=== PATIENT | female | born 1955 | race Caucasian/White ===

== ENCOUNTER 2021-03-09 12:01 | Emergency (ER) | payer OTHER ==
[2021-03-09 12:05] VITALS: BP 143/81; PULSE 71; RESP 18; TEMP 98.2
[2021-03-09] MEDS ORDERED: IBUPROFEN 800 MG TAB PO STA (12:25)
[2021-03-09] MEDS ORDERED: AMOXIC-POT CLAV 875-125MG 1 EACH TAB PO STA (12:25)
[2021-03-09] MEDS ORDERED: HYDROcodone/APAP 5-325MG 1 EACH TAB PO STA (12:25)
--- NOTE | 2021-03-09 12:33 | ED ---
ENT HPI - General Chief complaint: Dental/Oral Stated complaint: mouth pain Time Seen by Provider: 03/09/21 12:12 Source: patient Mode of arrival: ambulatory Limitations: no limitations - History of Present Illness Initial comments: Patient states that she has an abscessed tooth. She has no trouble opening her mouth. She has no trouble swallowing. She has no elevation of the tongue. She has no trouble swallowing. She has no neck pain or stiffness. She has no ear pain. The pain is localized. It doesn't radiate anywhere. Nothing makes it better or worse. She has taken no medicine for her pain. - Related Data Previous Rx's Medication Instructions Recorded Amoxic-Pot Clav 875-125Mg 1 each PO Q12HR #20 tablet 03/09/21 [Augmentin Xr 875-125] Allergies Allergy/AdvReac Type Severity Reaction Status Date / Time codeine Allergy Nausea & Verified 03/09/21 12:05 Vomiting Review of Systems ROS Statement: Those systems with pertinent positive or pertinent negative responses have been documented in the HPI. ROS Other: All systems not noted in ROS Statement are negative. Past Medical History Past Medical History: Diabetes Mellitus History of Any Multi-Drug Resistant Organisms: None Reported Past Surgical History: Section, Cholecystectomy Additional Past Surgical History / Comment(s): Nasal cyst Past Psychological History: No Psychological Hx Reported Smoking Status: Current every day smoker Past Alcohol Use History: None Reported General Exam Limitations: no limitations General appearance: alert Head exam: Present: atraumatic Eye exam: Present: normal appearance ENT exam: Present: mucous membranes moist, other (Poor dentition, evidence of dental infection) Neck exam: Present: normal inspection, full ROM. Absent: meningismus Respiratory exam: Absent: respiratory distress Neurological exam: Present: alert, oriented X3 Psychiatric exam: Present: normal affect Skin exam: Absent: rash Course Vital Signs 03/09/21 12:02 Temperature 98.2 F Pulse Rate 71 Respiratory 18 Rate Blood Pressure 143/81 O2 Sat by Pulse 96 Oximetry Medical Decision Making - Medical Decision Making Patient has a dental infection. There is no indication for imaging at this time. It is very localized. There is no evidence of intraoral abscesses that can be drained. There is no evidence of Andrei angina or any other acute emergency condition. She is stable for discharge. I instructed her to follow- up with dental as soon as possible and to return to the emergency department if her symptoms worsen at all. Disposition Clinical Impression: Dental caries Disposition: HOME SELF-CARE Condition: Good Instructions (If sedation given, give patient instructions): Toothache (ED), Dental Abscess (ED) Prescriptions: Amoxic-Pot Clav 875-125Mg [Augmentin Xr 875-125] 1 each PO Q12HR #20 tablet Is patient prescribed a controlled substance at d/c from ED?: No Referrals: Conrado Banks MD [Primary Care Provider] - 1-2 days
== END 2021-03-09 12:51 | disposition home or self-care (01) ==
LOC: EC 12:01
DX: K02.9 Dental caries, unspecified (principal); E11.9 Type 2 diabetes mellitus without complications; F17.200 Nicotine dependence, unspecified, uncomplicated; Z88.5 Allergy status to narcotic agent
CPT/HCPCS: 99282

== ENCOUNTER 2021-04-13 05:35 | Emergency (ER) | payer OTHER ==
[2021-04-13 05:40] VITALS: BP 132/86; PULSE 84; RESP 18; TEMP 97.6
[2021-04-13] MEDS ORDERED: PENICILLIN VK 500MG STARTER 4 TAB BTL PO STA (05:48)
[2021-04-13] MEDS ORDERED: IBUPROFEN 600 MG STARTER PACK 4 TAB BTL PO STA (05:48)
[2021-04-13] MEDS ORDERED: IBUPROFEN 800 MG TAB PO STA (05:48)
[2021-04-13] MEDS ORDERED: traMADol 50 MG STARTER PACK 3 TAB BTL PO STA (05:48)
[2021-04-13] MEDS ORDERED: DEXAMETHASONE SOD PHOSPHATE 10 MG/ML 1 ML VIAL IM STA (05:48)
[2021-04-13] MEDS ORDERED: HYDROcodone/APAP 5-325MG 1 EACH TAB PO STA (05:48)
[2021-04-13] MEDS ORDERED: PENICILLIN V POTASSIUM 250 MG TAB PO STA (05:49)
--- NOTE | 2021-04-13 05:52 | ED ---
ENT HPI - General Chief complaint: Dental/Oral Stated complaint: Dental abscess Time Seen by Provider: 04/13/21 05:48 Source: patient, family, RN notes reviewed, old records reviewed Mode of arrival: ambulatory Limitations: no limitations - History of Present Illness Initial comments: This is a 65-year-old female presented today for evaluation of severe tooth pain with facial swelling. Symptoms started yesterday progressively worsened today. Patient did make appointment with dentist. Patient dental infection last month of the same tooth pain is pretty significant. She is afebrile no nausea vomiting diarrhea, no shortness of breath or chest pain. No other complaints MD complaint: tooth pain -: days(s) (2) Severity: severe Severity scale (1-10): 8 Quality: aching Consistency: constant Improves with: none Worsens with: none Context- Dental: poor dental care Associated Symptoms: toothache, other (Patient had similar infection 1 month ago) - Related Data Home Medications Medication Instructions Recorded Confirmed Atorvastatin [Lipitor] 20 mg PO DAILY 03/09/21 03/09/21 Citalopram Hydrobromide [CeleXA] 20 mg PO DAILY 03/09/21 03/09/21 Losartan Potassium 50 mg PO DAILY 03/09/21 03/09/21 Metoprolol Succinate [Toprol XL] 25 mg PO DAILY 03/09/21 03/09/21 glipiZIDE [Glucotrol] 10 mg PO AC-BID 03/09/21 03/09/21 metFORMIN HCL [Glucophage] 1,000 mg PO BID 03/09/21 03/09/21 Previous Rx's Medication Instructions Recorded Amoxic-Pot Clav 875-125Mg 1 each PO Q12HR #20 tablet 03/09/21 [Augmentin Xr 875-125] Allergies Allergy/AdvReac Type Severity Reaction Status Date / Time codeine Allergy Nausea & Verified 04/13/21 05:40 Vomiting Review of Systems ROS Statement: Those systems with pertinent positive or pertinent negative responses have been documented in the HPI. ROS Other: All systems not noted in ROS Statement are negative. Past Medical History Past Medical History: Diabetes Mellitus History of Any Multi-Drug Resistant Organisms: None Reported Past Surgical History: Section, Cholecystectomy Additional Past Surgical History / Comment(s): Nasal cyst Past Psychological History: No Psychological Hx Reported Smoking Status: Current every day smoker Past Alcohol Use History: None Reported General Exam Limitations: no limitations General appearance: alert, in no apparent distress Head exam: Present: atraumatic, normocephalic, normal inspection Eye exam: Present: normal appearance, PERRL, EOMI. Absent: scleral icterus, conjunctival injection, periorbital swelling ENT exam: Present: normal exam, mucous membranes moist, other (Patient does have significant dental caries with fractured tooth lower rear, does have some swelling in her cheek area as well) Neck exam: Present: normal inspection. Absent: tenderness, meningismus, lymphadenopathy Respiratory exam: Present: normal lung sounds bilaterally. Absent: respiratory distress, wheezes, rales, rhonchi, stridor Cardiovascular Exam: Present: regular rate, normal rhythm, normal heart sounds. Absent: systolic murmur, diastolic murmur, rubs, gallop, clicks GI/Abdominal exam: Present: soft, normal bowel sounds. Absent: distended, tenderness, guarding, rebound, rigid Extremities exam: Present: normal inspection, full ROM, normal capillary refill. Absent: tenderness, pedal edema, joint swelling, calf tenderness Back exam: Present: normal inspection Neurological exam: Present: alert, oriented X3, CN II-XII intact Psychiatric exam: Present: normal affect, normal mood Skin exam: Present: warm, dry, intact, normal color. Absent: rash Course Vital Signs 04/13/21 05:36 Temperature 97.6 F Pulse Rate 84 Respiratory 18 Rate Blood Pressure 132/86 O2 Sat by Pulse 96 Oximetry - Reevaluation(s) Reevaluation #1: 04/13/21 05:51 Medical record is reviewed Reevaluation #2: 04/13/21 05:51 Patient is currently adequate pain control Reevaluation #3: 04/13/21 05:51 Spoke with patient regarding findings and questions have been answered Medical Decision Making - Medical Decision Making 65 female who does present today for evaluation of dental pain with right lower mandibular swelling. Patient does have significant dental fracture with dental caries and dental infection with abscess. Patient placed on antibiotics and pain control does have follow-up dentist appointment this morning at 9 AM Disposition Clinical Impression: Dental abscess, Dental caries Disposition: HOME SELF-CARE Condition: Good Instructions (If sedation given, give patient instructions): Dental Abscess (ED), Toothache (ED) Is patient prescribed a controlled substance at d/c from ED?: No Referrals: Robert Hickman DDS [STAFF PHYSICIAN] - 1-2 days
== END 2021-04-13 06:15 | disposition home or self-care (01) ==
LOC: EC 05:35
DX: K04.7 Periapical abscess without sinus (principal); K02.9 Dental caries, unspecified; E11.9 Type 2 diabetes mellitus without complications; F17.200 Nicotine dependence, unspecified, uncomplicated; Z88.5 Allergy status to narcotic agent
CPT/HCPCS: 96372; 99283; J1100

== ENCOUNTER → 2021-06-05 | Outpatient (CLI) | payer OTHER ==
[2021-06-05 22:59] LABS: Basophils # (A) 0.04 X 10*3/uL (0.00-0.10); Basophils % (A) 0.4 %; Eosinophils # (A) 0.17 X 10*3/uL (0.04-0.35); Eosinophils % (A) 1.9 %; HCT 43.3 % (37.2-46.3); HGB 13.9 g/dL (12.0-15.0); Immature Grans, Automated 0.3 %; Lymphocytes # (A) 2.87 X 10*3/uL (0.90-5.00); Lymphocytes % (A) 31.4 %; MCH 29.8 pg (27.0-32.0); MCHC 32.1 g/dL (32.0-37.0); MCV 92.7 fL (80.0-97.0); Mean Platelet Volume 10.5 fL (9.5-12.2); Monocytes # (A) 0.46 X 10*3/uL (0.20-1.00); NRBC Per 100 WBC 0 /100 WBCS (0.0-0.0); Neutrophils # (A) 5.57 X 10*3/uL (1.80-7.70); Platelet Count 248 X 10*3/uL (140-440); RBC 4.67 X 10*6/uL (4.10-5.20); RDW 12.6 % (11.5-14.5); WBC 9.14 X 10*3/uL (4.50-10.00)
[2021-06-05 23:54] LABS: African American GFR (CKD) 111.2 (60.0-200.0); Albumin 4.5 g/dL (3.8-4.9); Albumin/Globulin Ratio 1.89 (1.60-3.17); Anion Gap 11.7 mmol/L (10.00-18.00); BUN/Creat Ratio 16.06 Ratio (12.00-20.00); Blood Urea Nitrogen 9.8 mg/dL (9.0-27.0); Calcium 10.6 mg/dL (8.7-10.3); Carbon Dioxide 23.1 mmol/L (20.0-27.5); Globulin 2.4 g/dL (1.6-3.3); Potassium 4.4 mmol/L (3.5-5.5); T4, Free (Free Thyroxine) 1.58 ng/dL (0.800-1.800); Total Bilirubin 0.3 mg/dL (0.30-1.20); Total Protein 6.8 g/dL (6.2-8.2)
== END | disposition home or self-care (01) ==
LOC: LABWHC1 15:06
PROVIDERS: ATTEND Family Medicine
DX: I10 Essential (primary) hypertension (principal); E83.52 Hypercalcemia; R53.83 Other fatigue
CPT/HCPCS: 36415; 80053; 82306; 82607; 82728; 82746; 83970; 84439; 84443; 84481; 85025

== ENCOUNTER → 2021-08-06 | Outpatient (CLI) | payer OTHER ==
--- NOTE | 2021-08-06 16:19 | NM ---
EXAMINATION TYPE: NM parathyroid w/spect DATE OF EXAM: 08/06/2021 COMPARISON: NONE HISTORY: E 21.0 TECHNIQUE: Following administration of 25.7 mCi Tc99m Sestamibi. Anterior projection images of the neck and ches t were obtained 10 minutes and 3 hours post injection. SPECT images of the neck and chest were obtai doug and reconstructed in three axes. FINDINGS: Thyroid tracer washout: Delayed images demonstrate near-complete tracer washout from the thyroid. Parathyroid uptake: None. The two-hour delayed images do not demonstrate any focal abnormal persisten t uptake in the region of the parathyroid glands to suggest parathyroid adenoma. Normal uptake: There is physiological tracer uptake in the salivary glands and thyroid gland. IMPRESSION: Normal parathyroid imaging study. No evidence for mediastinal uptake to suggest mediastinal parathyro id adenoma
== END | disposition home or self-care (01) ==
LOC: RADNMMAIN 10:32
PROVIDERS: ATTEND Family Medicine
DX: E21.0 Primary hyperparathyroidism (principal)
CPT/HCPCS: 78071; A9500

== ENCOUNTER → 2021-08-15 | Day surgery (SDC) | payer OTHER ==
[2021-08-13 16:06] VITALS: BMI 32.2
[~2021-08-15] MED LIST: LACTATED RINGERS 1,000 ML IV SCH; LIDOCAINE 1% (10MG/ML) FOR IV START INTRADERMA PRN; LIDOCAINE 2% INJ 20 MG/ML (2 ML VIAL) ONE; PROPOFOL 10 MG/ML 20 ML VIAL IV ONE
[2021-08-15 08:05] VITALS: TEMP 98.2
[2021-08-15 08:20] LABS: Glucose,Whole Blood 102 mg/dL (70-110)
--- NOTE | 2021-08-15 08:58 | P.PCN ---
Date of Procedure: 08/15/21 Procedure(s) Performed: BRIEF HISTORY: Patient is a 65-year-old, pleasant, white female scheduled for an upper endoscopy as a part of evaluation of intermittent dysphagia to solids for the last several months duration. She also complains of severe heartburn and is quite Prilosec for weeks with no help. She long-standing history of diabetes colitis. She is scheduled for an upper endoscopy with possible dilation today.. PROCEDURE PERFORMED: Esophagogastroduodenoscopy with biopsy. PREOPERATIVE DIAGNOSIS: GERD/intermittent dysphagia to solids 6 months duration. IV sedation per anesthesia. PROCEDURE: After informed consent was obtained, the patient was brought into the endoscopy unit. IV sedation was administered by Anesthesia under continuous monitoring. Initially the Olympus GIF-140 video endoscope was inserted into the mouth. Esophagus intubated without any difficulty. It was gradually advanced into the stomach and duodenum and carefully examined. The bulb and the second part of the duodenum appeared normal. The scope at this time was withdrawn to the stomach, adequately insufflated with air, and upon careful examination, mucosa of the antrum, had mild gastritis and biopsies were done from this area. The body, cardia and the fundus appeared normal. The scope was then withdrawn into the esophagus. The GE junction was located at 39 cm from the incisors. Moderate size hiatal hernia noted. There were linear erosions and ulcerations in the distal esophagus extending from 30-40 cm from the incisors consistent with LA grade C reflux esophagitis. Rest of esophagus appeared normal and the patient tolerated the procedure well. IMPRESSION: 1. Linear erosions and submitted ulcerations in the distal esophagus consistent with LA grade C reflux esophagitis. 2.. Moderate size hiatal hernia 3. Retained food in esophagus stomach suggestive of diabetic gastroparesis. RECOMMENDATIONS: The findings of this examination were discussed with the patient as well as a family. She was advised to start On Prilosec 20 mg twice daily half hour before breakfast and dinnertime and follow antireflux measures. Recommend aggressive blood sugar control to improve the diabetic gastroparesis. She was advised to be small frequent meals to improve her symptoms..
[2021-08-15 09:41] VITALS: BP 92/63; PULSE 86; RESP 18
== END ==
LOC: ORWHC2ENDO 07:35
PROVIDERS: ATTEND Internal Medicine Gastroenterology
DX: K21.00 Gastro-esophageal reflux disease with esophagitis, without bleeding (principal); K22.10 Ulcer of esophagus without bleeding; K29.50 Unspecified chronic gastritis without bleeding; K44.9 Diaphragmatic hernia without obstruction or gangrene; E11.9 Type 2 diabetes mellitus without complications; I10 Essential (primary) hypertension; E78.5 Hyperlipidemia, unspecified; F17.210 Nicotine dependence, cigarettes, uncomplicated; Z79.899 Other long term (current) drug therapy; Z79.84 Long term (current) use of oral hypoglycemic drugs
CPT/HCPCS: 88305; 43239; J2704; J2001